=== PATIENT | female | born 1955 | race Caucasian/White ===

== ENCOUNTER 2016-07-14 17:11 | Emergency (ER) | payer MEDICAID ==
[~2016-07-14] VITALS: Ht 162.6 cm; Wt 107.0 kg
[~2016-07-14 17:11] MED LIST: ALBU0.63 NEB; AMIT25TA PO; AMLO5TAB2 PO; ASCO500T8 PO; CHLO4TAB PO; DIVA500T2 PO; ESCI10TA10 PO; FLUT1DIS3 INH; GARLIC OIL PO; HYDR25TA6 PO; LEVO500T33 PO; LEVO750T26 PO; LOSA100T2 PO; LYSI500T PO; MOME13HF INH; MONT10TA9 PO; MULT-321 PO; OXYC-302 PO; PARSLEY PO; POTA99TA PO; PRO AIR HFA INH; RANI150T4 PO; TRAZ50TA18 PO; VITAMIN B6 PO; [UNRECOGNIZED DRUG - OTHER] PO
[2016-07-14] MEDS ORDERED: PLEASE ENTER HEIGHT AND WEIGHT MC SCH (17:25)
[2016-07-14] MEDS ORDERED: ALBUTEROL/IPRATROPIUM 2.5MG/0.5MG, 3 ML NPPB ONE (17:30)
[2016-07-14] MEDS ORDERED: ALBUTEROL/IPRATROPIUM 2.5MG/0.5MG, 3 ML ONE (17:30)
[2016-07-14 17:58] LABS: BLOOD UREA NITROGEN 18 mg/dL (7-18)
[2016-07-14] MEDS ORDERED: MICROFIBRILLAR COLLAGEN 1 GM TP ONE (18:09)
[2016-07-14 18:18] LABS: IS PT STATUS REG ER OR PRE ER? YES
[2016-07-14 19:33] VITALS: BP 126/76
== END 2016-07-14 19:58 | disposition home or self-care (01) ==
LOC: ED 19:45
DX: I83.92 Asymptomatic varicose veins of left lower extremity (principal); J45.901 Unspecified asthma with (acute) exacerbation; I10 Essential (primary) hypertension; R09.02 Hypoxemia
CPT/HCPCS: 36415; 71010; 80048; 82040; 83880; 84484; 85025; 93005; 94640; 99285; J7512; J7620

== ENCOUNTER 2016-07-26 11:12 | Inpatient (IN) | payer MEDICAID ==
[~2016-07-26] VITALS: Ht 162.6 cm; Wt 113.3 kg
[~2016-07-26 11:12] MED LIST changes: +DOXYCYCLINE 100MG TABLET PO ONE
[2016-07-26] MEDS ORDERED: SODIUM CHLORIDE FLUSH 10ML SYR IVF ONE (11:30)
[2016-07-26] MEDS ORDERED: ALBUTEROL SULFATE 2.5 MG/3 ML NPPB ONE (11:30)
[2016-07-26] MEDS ORDERED: SODIUM CHLORIDE 0.9% 1,000ML IVBOLUS ONE (11:30)
[2016-07-26] MEDS ORDERED: ALBUTEROL SULFATE 2.5 MG/3 ML ONE (11:39)
[2016-07-26] MEDS ORDERED: ALBUTEROL/IPRATROPIUM 2.5MG/0.5MG, 3 ML NPPB ONE (12:00)
[2016-07-26] MEDS ORDERED: ALBUTEROL/IPRATROPIUM 2.5MG/0.5MG, 3 ML ONE (12:04)
[2016-07-26 12:18] LABS: ASPARTATE AMINO TRANSFERASE 18 U/L (15-37); BLOOD UREA NITROGEN 11 mg/dL (7-18)
[2016-07-26] MEDS ORDERED: LEVOFLOXACIN/PMX 750MG/150ML 150 ML IV ONE (12:30)
[2016-07-26] MEDS ORDERED: ACETAMINOPHEN 325 MG TABLET PO ONE (12:30)
[2016-07-26] MEDS ORDERED: ACETAMINOPHEN 325 MG TABLET ONE (12:32)
[2016-07-26] MEDS ORDERED: LEVOFLOXACIN/PMX 750MG/150ML 150 ML ONE (12:33)
[2016-07-26 12:56] LABS: IS PT STATUS REG ER OR PRE ER? YES
[2016-07-26] MEDS ORDERED: FUROSEMIDE 40 MG/4 ML IV ONE (13:00)
[2016-07-26] MEDS ORDERED: GUAIFENESIN/DM 200-20MG, 10ML UDC PO PRN (14:00)
[2016-07-26] MEDS ORDERED: ONDANSETRON ODT 4 MG PO PRN (14:00)
[2016-07-26] MEDS ORDERED: ENALAPRILAT 1.25 MG/ML, 2ML IVPush PRN (14:00)
[2016-07-26] MEDS ORDERED: DOCUSATE 100 MG CAPSULE PO PRN (14:00)
[2016-07-26] MEDS: NICOTINE 7 MG/24 HR PATCH.TD24 TD SCH (14:00)
[2016-07-26] MEDS ORDERED: OXYcodone/APAP 5/325MG TABLET PO PRN (14:00)
[2016-07-26] MEDS ORDERED: POLYETHYLENE GLYCOL 17 GM PACKET PO PRN (14:00)
[2016-07-26] MEDS ORDERED: MORPHINE SULFATE 4 MG/ML, 1ML IVPush PRN (14:00)
[2016-07-26] MEDS ORDERED: BISACODYL 10 MG SUPP PR PRN (14:00)
[2016-07-26] MEDS ORDERED: ONDANSETRON 2MG/ML, 2ML IVPush PRN (14:00)
[2016-07-26] MEDS: ALBUTEROL/IPRATROPIUM 2.5MG/0.5MG, 3 ML NPPB SCH ×3 (14:30→22:10)
[2016-07-26] MEDS ORDERED: ALBUTEROL SULFATE 2.5 MG/3 ML NPPB PRN (15:00)
[2016-07-26] MEDS: ENOXAPARIN 40 MG/0.4 ML SQ SCH (15:24)
[2016-07-26 15:32] VITALS: BP 118/71
[2016-07-26] MEDS: CEFTRIAXONE PMX 1GM/50ML 50 ML IV SCH (18:00)
[2016-07-26 18:07] LABS: IS PT STATUS REG ER OR PRE ER? NO
[2016-07-26] MEDS: DIVALPROEX 500 MG TABLET.DR PO SCH (20:24)
[2016-07-26] MEDS: AMITRIPTYLINE 25 MG TABLET PO SCH (20:25)
[2016-07-26] MEDS: methylPREDNISolone SOD SUCC 40 MG/ML IV SCH (20:25)
[2016-07-26] MEDS: MONTELUKAST 10 MG TABLET PO SCH (20:25)
[2016-07-26] MEDS: SODIUM CHLORIDE FLUSH 3ML SYRINGE IVF SCH (20:26)
[2016-07-26 20:29] VITALS: BP 151/90
[2016-07-26] MEDS: MOMETASONE INH SCH (20:29)
[2016-07-26] MEDS: FORMOTEROL INH SCH (20:29)
[2016-07-26] MEDS: [UNRECOGNIZED DRUG - OTHER] INH SCH (20:29)
[2016-07-26 23:37] LABS: IS PT STATUS REG ER OR PRE ER? NO
[2016-07-27 02:25] VITALS: BP 150/89
[2016-07-27] MEDS: ALBUTEROL/IPRATROPIUM 2.5MG/0.5MG, 3 ML NPPB SCH ×6 (02:30→22:11)
[2016-07-27 06:41] LABS: BLOOD UREA NITROGEN 18 mg/dL (7-18)
[2016-07-27 08:14] VITALS: BP 143/88
[2016-07-27] MEDS ORDERED: LYSINE 500 MG PO SCH (09:00)
[2016-07-27] MEDS: SODIUM CHLORIDE FLUSH 3ML SYRINGE IVF SCH ×2 (09:00→21:00)
[2016-07-27] MEDS: ASCORBIC ACID 500 MG TABLET PO SCH (09:00)
[2016-07-27] MEDS: methylPREDNISolone SOD SUCC 40 MG/ML IV SCH (09:42)
[2016-07-27] MEDS: AMLODIPINE 5 MG TABLET PO SCH (09:42)
[2016-07-27] MEDS: MULTIVITAMINS/MINERALS TABLET PO SCH (09:42)
[2016-07-27] MEDS: HYDROCHLOROTHIAZIDE 25 MG TABLET PO SCH (09:43)
[2016-07-27] MEDS: LOSARTAN 50MG TABLET PO SCH (09:43)
[2016-07-27] MEDS: CITALOPRAM 20 MG TABLET PO SCH (09:43)
[2016-07-27] MEDS: MOMETASONE INH SCH ×2 (09:47→21:00)
[2016-07-27] MEDS: [UNRECOGNIZED DRUG - OTHER] INH SCH ×2 (09:47→21:00)
[2016-07-27] MEDS: FORMOTEROL INH SCH ×2 (09:47→21:00)
[2016-07-27] MEDS: NICOTINE 7 MG/24 HR PATCH.TD24 TD SCH (14:00)
[2016-07-27] MEDS: FUROSEMIDE 20 MG TABLET PO SCH (14:07)
[2016-07-27] MEDS: ENOXAPARIN 40 MG/0.4 ML SQ SCH (14:07)
[2016-07-27 14:22] VITALS: BP 116/68
[2016-07-27] MEDS: CEFTRIAXONE PMX 1GM/50ML 50 ML IV SCH (17:52)
[2016-07-27 20:04] VITALS: BP 115/70
[2016-07-27] MEDS: DIVALPROEX 500 MG TABLET.DR PO SCH (21:59)
[2016-07-27] MEDS: MONTELUKAST 10 MG TABLET PO SCH (21:59)
[2016-07-27] MEDS: AMITRIPTYLINE 25 MG TABLET PO SCH (21:59)
[2016-07-28 00:49] VITALS: BP 113/73
[2016-07-28] MEDS: ALBUTEROL/IPRATROPIUM 2.5MG/0.5MG, 3 ML NPPB SCH ×3 (02:29→20:53)
[2016-07-28 08:23] VITALS: BP 148/86
[2016-07-28] MEDS: POTASSIUM CHLORIDE 10 MEQ TABLET.ER PO SCH (08:48)
[2016-07-28] MEDS: HYDROCHLOROTHIAZIDE 25 MG TABLET PO SCH (08:48)
[2016-07-28] MEDS: FUROSEMIDE 20 MG TABLET PO SCH (08:48)
[2016-07-28] MEDS: MULTIVITAMINS/MINERALS TABLET PO SCH (08:48)
[2016-07-28] MEDS: AMLODIPINE 5 MG TABLET PO SCH (08:48)
[2016-07-28] MEDS: CITALOPRAM 20 MG TABLET PO SCH (08:49)
[2016-07-28] MEDS: LOSARTAN 50MG TABLET PO SCH (08:49)
[2016-07-28] MEDS: SODIUM CHLORIDE FLUSH 3ML SYRINGE IVF SCH ×2 (08:52→21:00)
[2016-07-28] MEDS: ASCORBIC ACID 500 MG TABLET PO SCH (08:52)
[2016-07-28] MEDS: MOMETASONE INH SCH ×2 (08:53→21:00)
[2016-07-28] MEDS: [UNRECOGNIZED DRUG - OTHER] INH SCH ×2 (08:53→21:00)
[2016-07-28] MEDS: FORMOTEROL INH SCH ×2 (08:53→21:00)
[2016-07-28 13:57] VITALS: BP 130/81
[2016-07-28] MEDS: NICOTINE 7 MG/24 HR PATCH.TD24 TD SCH (14:00)
[2016-07-28] MEDS: ENOXAPARIN 40 MG/0.4 ML SQ SCH (16:20)
[2016-07-28] MEDS: CEFTRIAXONE PMX 1GM/50ML 50 ML IV SCH (17:33)
[2016-07-28 18:52] VITALS: BP 131/77
[2016-07-28] MEDS: MONTELUKAST 10 MG TABLET PO SCH (21:34)
[2016-07-28] MEDS: AMITRIPTYLINE 25 MG TABLET PO SCH (21:34)
[2016-07-28] MEDS: DIVALPROEX 500 MG TABLET.DR PO SCH (21:35)
[2016-07-29 00:50] VITALS: BP 123/70
[2016-07-29 07:22] VITALS: BP 149/92
[2016-07-29] MEDS: ALBUTEROL/IPRATROPIUM 2.5MG/0.5MG, 3 ML NPPB SCH (07:25)
[2016-07-29] MEDS: POTASSIUM CHLORIDE 10 MEQ TABLET.ER PO SCH (08:54)
[2016-07-29] MEDS: CITALOPRAM 20 MG TABLET PO SCH (08:55)
[2016-07-29] MEDS: LOSARTAN 50MG TABLET PO SCH (08:55)
[2016-07-29] MEDS: HYDROCHLOROTHIAZIDE 25 MG TABLET PO SCH (08:55)
[2016-07-29] MEDS: MULTIVITAMINS/MINERALS TABLET PO SCH (08:56)
[2016-07-29] MEDS: ASCORBIC ACID 500 MG TABLET PO SCH (08:56)
[2016-07-29] MEDS: AMLODIPINE 5 MG TABLET PO SCH (08:56)
[2016-07-29] MEDS: FUROSEMIDE 20 MG TABLET PO SCH (08:56)
[2016-07-29] MEDS: MOMETASONE INH SCH (08:57)
[2016-07-29] MEDS: [UNRECOGNIZED DRUG - OTHER] INH SCH (08:57)
[2016-07-29] MEDS: FORMOTEROL INH SCH (08:57)
[2016-07-29] MEDS: SODIUM CHLORIDE FLUSH 3ML SYRINGE IVF SCH (08:57)
[2016-07-29] MEDS ORDERED: DOXY100T PO (09:31)
[2016-07-29] MEDS ORDERED: NICO1PAT10 TD (09:31)
[2016-07-29] MEDS ORDERED: CEFD300C37 PO (09:31)
[2016-07-29] MEDS ORDERED: IPRA3AMP NPPB (09:31)
[2016-07-29] MEDS ORDERED: ONDA4TAB13 PO (09:31)
[2016-07-29] MEDS ORDERED: LISI-167 PO (09:45)
[2016-07-29] MEDS ORDERED: FURO-92 PO (09:45)
[2016-07-29] MEDS ORDERED: POTA20PA8 PO (09:45)
== END 2016-07-29 12:20 | disposition home or self-care (01) | DRG 291 ==
LOC: ED 13:14 → EDIP 13:53 → 4WST 14:17 → DCLOUNGE 07-29 11:45
PROVIDERS: ADMIT Internal Medicine
DX: I11.0 Hypertensive heart disease with heart failure (principal); J96.21 Acute and chronic respiratory failure with hypoxia; J18.9 Pneumonia, unspecified organism; J44.1 Chronic obstructive pulmonary disease with (acute) exacerbation; J44.0 Chronic obstructive pulmonary disease with (acute) lower respiratory infection; I50.33 Acute on chronic diastolic (congestive) heart failure; G89.29 Other chronic pain; M25.511 Pain in right shoulder; F32.9 Major depressive disorder, single episode, unspecified; F41.9 Anxiety disorder, unspecified; E66.9 Obesity, unspecified; Z66 Do not resuscitate; Z83.3 Family history of diabetes mellitus; Z96.659 Presence of unspecified artificial knee joint; E66.01 Morbid (severe) obesity due to excess calories; R73.02 Impaired glucose tolerance (oral); Z88.0 Allergy status to penicillin; Z88.8 Allergy status to other drugs, medicaments and biological substances; Z91.018 Allergy to other foods; Z72.0 Tobacco use
CPT/HCPCS: 36415; 71010; 80048; 80053; 83605; 83880; 84145; 84484; 85025; 85610; 85730; 87040; 93005; 93306; 94640; 96365; J0696; J1650; J1940; J1956; J7613; J7620; J2920; J7030; J7512

== ENCOUNTER 2016-08-05 18:17 | Emergency (ER) | payer MEDICAID ==
[~2016-08-05] VITALS: Ht 162.6 cm; Wt 114.7 kg
[~2016-08-05 18:17] MED LIST changes: +CEFD300C37 PO; +DOXY100T PO; -DOXYCYCLINE 100MG TABLET PO ONE; +FURO-92 PO; +IPRA3AMP NPPB; +LISI-167 PO; +NICO1PAT10 TD; +ONDA4TAB13 PO; +POTA20PA8 PO
[2016-08-05 19:23] LABS: BLOOD UREA NITROGEN 74 mg/dL (7-18)
[2016-08-05] MEDS ORDERED: LINEZOLID PMX 600MG/300ML 300 ML IV ONE (20:00)
[2016-08-05] MEDS ORDERED: SODIUM CHLORIDE 0.9%, 500ML IVBOLUS ONE (21:00)
[2016-08-05 21:10] VITALS: BP 150/70
== END 2016-08-05 23:09 | disposition home or self-care (01) ==
LOC: ED 22:41
DX: I13.0 Hypertensive heart and chronic kidney disease with heart failure and stage 1 through stage 4 chronic kidney disease, or unspecified chronic kidney disease (principal); N18.9 Chronic kidney disease, unspecified; I50.9 Heart failure, unspecified; B95.2 Enterococcus as the cause of diseases classified elsewhere; F17.200 Nicotine dependence, unspecified, uncomplicated; J45.909 Unspecified asthma, uncomplicated; Z16.21 Resistance to vancomycin; Z87.01 Personal history of pneumonia (recurrent)
CPT/HCPCS: 36415; 80048; 81001; 82040; 83605; 84145; 85025; 87040; 87086; 96360; 99284; J7040; 87077; 87106

== ENCOUNTER 2016-08-06 18:00 | Emergency (ER) | payer MEDICAID ==
[~2016-08-06] VITALS: Ht 162.6 cm; Wt 114.5 kg
[2016-08-06 19:08] LABS: BLOOD UREA NITROGEN 64 mg/dL (7-18)
[2016-08-06] MEDS ORDERED: SODIUM CHLORIDE 0.9% 1,000ML IVBOLUS ONE (19:30)
[2016-08-06 21:57] VITALS: BP 107/70
== END 2016-08-06 22:00 | disposition home or self-care (01) ==
LOC: ED 20:50
DX: I13.0 Hypertensive heart and chronic kidney disease with heart failure and stage 1 through stage 4 chronic kidney disease, or unspecified chronic kidney disease (principal); N18.9 Chronic kidney disease, unspecified; F17.210 Nicotine dependence, cigarettes, uncomplicated; Z87.01 Personal history of pneumonia (recurrent); J45.909 Unspecified asthma, uncomplicated; Z88.0 Allergy status to penicillin; Z88.8 Allergy status to other drugs, medicaments and biological substances
CPT/HCPCS: 36415; 80048; 81001; 85025; 87077; 87086; 87106; 96360; 99284; J7030

== ENCOUNTER 2016-12-10 16:08 | Emergency (ER) | payer MEDICAID ==
[~2016-12-10] VITALS: Ht 162.6 cm; Wt 113.3 kg
[~2016-12-10 16:08] MED LIST changes: -LEVO500T33 PO; +LEVO500T47 PO; +NICO-485 TD; -NICO1PAT10 TD; +POTA20PA25 PO; -POTA20PA8 PO; -POTA99TA PO; +POTA99TA2 PO
[2016-12-10 22:57] VITALS: BP 136/84
== END 2016-12-10 23:02 | disposition home or self-care (01) ==
LOC: ED 22:39
DX: S16.1XXA Strain of muscle, fascia and tendon at neck level, initial encounter (principal); S39.012A Strain of muscle, fascia and tendon of lower back, initial encounter; F17.200 Nicotine dependence, unspecified, uncomplicated; I11.0 Hypertensive heart disease with heart failure; J45.909 Unspecified asthma, uncomplicated; G89.29 Other chronic pain; I50.9 Heart failure, unspecified; Z88.0 Allergy status to penicillin; V43.52XA Car driver injured in collision with other type car in traffic accident, initial encounter; Y93.89 Activity, other specified; Y92.89 Other specified places as the place of occurrence of the external cause; Y99.8 Other external cause status
CPT/HCPCS: 70450; 71010; 72072; 72110; 72125; 72141; 99284

== ENCOUNTER → 2017-04-01 | Outpatient (CLI) | payer MEDICAID | END | disposition home or self-care (01) | LOC: CFH 15:15 | PROVIDERS: ATTEND Nurse Practitioner Family | DX: R06.02 Shortness of breath (principal) | CPT/HCPCS: 71250 ==

== ENCOUNTER 2017-07-14 09:31 | Day surgery (SDC) | payer MEDICARE, MEDICAID ==
[2017-07-12 11:48] LABS: ALANINE AMINOTRANSFERASE 26 U/L (12-78); ALBUMIN 3.2 g/dL (3.4-5.0); ANION GAP 7 mmol/L (5-15); CALCIUM 8.6 mg/dL (8.5-10.1); CHLORIDE 102 mmol/L (98-107); CREATININE 0.71 mg/dL (0.55-1.02)
[2017-07-12 11:50] LABS: ALKALINE PHOSPHATASE 88 U/L (45-117); BILIRUBIN,TOTAL 0.4 mg/dL (0.2-1.0); TOTAL PROTEIN 6.8 g/dL (6.4-8.2)
[~2017-07-14] VITALS: Ht 162.6 cm; Wt 119.9 kg
[~2017-07-14 09:31] MED LIST changes: +ALBU18HF INH; +CYAN250013 PO; +CYCL-259 PO; +FURO20TA3 PO; +MELO7.5T31 PO; +METH500T97 PO; +MONT10TA6 PO; +OMEP-110 PO; +POTA20TA89 PO; +POTA99TA3 PO; +Vitamin B6 PO
[2017-07-14 10:07] VITALS: BP 125/84
[2017-07-14] MEDS ORDERED: LACTATED RINGERS 1,000 ML IV SCH ×3 (10:12→19:30)
[2017-07-14] MEDS ORDERED: FENTANYL PF 250 MCG/5ML ONE (11:00)
[2017-07-14] MEDS ORDERED: MIDAZOLAM 1 MG/ML, 2ML ONE (11:00)
[2017-07-14] MEDS ORDERED: ONDANSETRON ODT 8 MG ONE (11:27)
[2017-07-14] MEDS ORDERED: GABAPENTIN 300 MG CAPSULE ONE (11:27)
[2017-07-14] MEDS ORDERED: OxyconTIN ER 10 MG TAB.ER ONE (11:27)
[2017-07-14] MEDS ORDERED: FAMOTIDINE 20 MG TABLET ONE (11:27)
[2017-07-14] MEDS ORDERED: FAMOTIDINE 20 MG TABLET PO ONE (11:30)
[2017-07-14] MEDS ORDERED: ONDANSETRON ODT 8 MG PO ONE (11:30)
[2017-07-14] MEDS ORDERED: OxyconTIN ER 10 MG TAB.ER PO ONE (11:30)
[2017-07-14] MEDS ORDERED: GABAPENTIN 300 MG CAPSULE PO ONE (11:30)
[2017-07-14] MEDS ORDERED: BUPIVACAINE/PF 0.5% ONE (11:32)
[2017-07-14] MEDS ORDERED: EPINEPHRINE 1 MG/ML, 1ML ONE (11:32)
[2017-07-14] MEDS ORDERED: PROPOFOL 10 MG/ML, 20ML ONE (12:12)
[2017-07-14] MEDS ORDERED: DEXAMETHASONE 4 MG/ML, 1ML ONE (12:24)
[2017-07-14] MEDS ORDERED: CEFAZOLIN 1,000 MG ONE ×2 (12:28)
[2017-07-14] MEDS ORDERED: LIDOCAINE/MPF 2%-EPI 1:200K, 20 ML ONE (12:38)
[2017-07-14] MEDS ORDERED: LIDOCAINE/PF 1%, 30ML ONE (12:40)
[2017-07-14] MEDS ORDERED: SUCCINYLCHOLINE 20 MG/ML, 10ML ONE (13:08)
[2017-07-14] MEDS ORDERED: ROCURONIUM 10MG/ML,5ML ONE (13:08)
[2017-07-14] MEDS ORDERED: PROMETHAZINE 12.5 MG SUPP PR PRN (13:30)
[2017-07-14] MEDS ORDERED: ALBUTEROL SULFATE 2.5 MG/3 ML NPPB PRN (13:30)
[2017-07-14] MEDS ORDERED: HYDROmorphone 1 MG/ML, 1ML IV PRN (13:30)
[2017-07-14] MEDS ORDERED: ALBUTEROL/IPRATROPIUM 2.5MG/0.5MG, 3 ML NPPB PRN (13:30)
[2017-07-14] MEDS ORDERED: morphine SULFATE 10 MG/ML, 1ML IV PRN (13:30)
[2017-07-14] MEDS ORDERED: MEPERIDINE/PF 25MG/0.5ML IVPush PRN (13:30)
[2017-07-14] MEDS ORDERED: OXYcodone 5 MG/5 ML ORAL.SOL UDC PO PRN (13:30)
[2017-07-14] MEDS ORDERED: hydrALAzine 20 MG/ML, 1ML IV PRN (13:30)
[2017-07-14] MEDS ORDERED: LABETALOL 5MG/ML, 20ML IV PRN (13:30)
[2017-07-14] MEDS ORDERED: ONDANSETRON 2MG/ML, 2ML IVPush PRN ×2 (13:30→19:30)
[2017-07-14] MEDS ORDERED: FENTANYL PF 100 MCG/2ML ONE (13:53)
[2017-07-14] MEDS: FENTANYL PF 100 MCG/2ML IV PRN ×2 (13:56→14:14)
[2017-07-14] MEDS ORDERED: MORPHINE SULFATE 4 MG/ML, 1ML IVPush PRN (19:00)
[2017-07-14] MEDS ORDERED: HYDROcodone/APAP 5/325 TABLET PO PRN (19:30)
[2017-07-14] MEDS ORDERED: OXYcodone/APAP 5/325MG TABLET PO PRN (19:30)
[2017-07-14] MEDS ORDERED: ONDANSETRON ODT 4 MG PO PRN (19:30)
[2017-07-14 20:35] VITALS: BP 119/80
== END 2017-07-14 21:55 | disposition home or self-care (01) ==
LOC: OUT 09:31 → 4NOR 17:48 → OUT 21:55
PROVIDERS: ATTEND Surgery
DX: I83.12 Varicose veins of left lower extremity with inflammation (principal); I10 Essential (primary) hypertension; F17.210 Nicotine dependence, cigarettes, uncomplicated; Z88.0 Allergy status to penicillin; Z88.8 Allergy status to other drugs, medicaments and biological substances; Z87.39 Personal history of other diseases of the musculoskeletal system and connective tissue; Z72.89 Other problems related to lifestyle
CPT/HCPCS: 36415; 37722; 80053; 93005; 93306; J0171; J0330; J0690; J1100; J2250; J2704; J3010; J3490; J7120; Q0162

== ENCOUNTER → 2018-03-25 | Outpatient (CLI) | payer MEDICAID, MEDICARE ==
[~2018-03-25] MED LIST changes: +AMLO-150 PO; -AMLO5TAB2 PO; +GADOBUTROL 10 MMOL/10 ML PFS ONE; -IPRA3AMP NPPB; +IPRA3AMP30 NPPB; -TRAZ50TA18 PO; +TRAZ50TA66 PO
== END | disposition home or self-care (01) ==
LOC: CFH 08:47
PROVIDERS: ATTEND Family Medicine
DX: R42 Dizziness and giddiness (principal)
CPT/HCPCS: 70553; A9585

== ENCOUNTER → 2018-06-01 | Outpatient (CLI) | payer MEDICARE ==
[~2018-06-01] MED LIST changes: -GADOBUTROL 10 MMOL/10 ML PFS ONE
== END | disposition home or self-care (01) ==
LOC: RAD 14:01
PROVIDERS: ATTEND Nurse Practitioner Family
DX: Z12.2 Encounter for screening for malignant neoplasm of respiratory organs (principal); J84.10 Pulmonary fibrosis, unspecified; Z72.0 Tobacco use
CPT/HCPCS: G0297

== ENCOUNTER → 2018-06-08 | Outpatient (CLI) | payer MEDICARE | END | disposition home or self-care (01) | LOC: RAD 13:07 | PROVIDERS: ATTEND Orthopaedic Surgery | DX: S46.012A Strain of muscle(s) and tendon(s) of the rotator cuff of left shoulder, initial encounter (principal); M19.012 Primary osteoarthritis, left shoulder; M25.412 Effusion, left shoulder; X58.XXXA Exposure to other specified factors, initial encounter; Y93.89 Activity, other specified; Y92.89 Other specified places as the place of occurrence of the external cause; Y99.8 Other external cause status ==